=== PATIENT | female | born 1955 | race Caucasian/White ===

== ENCOUNTER → 2017-09-11 | Outpatient (CLI) | payer OTHER ==
--- NOTE | 2017-09-11 16:53 | RAD ---
DATE: 09/11/2017 EXAM: DIGITAL SCREEN BILAT W/CAD HISTORY: Screening Mammogram COMPARISON: Screening mammogram 09/12/2016, 09/14/2015, 09/17/2014 This study was interpreted with the benefit of Computerized Aided Detection (CAD). The breast parenchyma shows scattered fibroglandular densities. Breast parenchyma level B. FINDINGS: Bilateral digital 2-D and 3-D tomosynthesis CC and MLO views. No suspicious mass, calcification or architectural distortion. No significant change from prior examination IMPRESSION: No mammographic evidence of malignancy. Recommend routine screening mammogram in 12 months. BI-RADS CATEGORY: 1 NEGATIVE RECOMMENDED FOLLOW-UP: 12M 12 MONTH FOLLOW-UP PQRS compliance statement: Patient information was entered into a reminder system with a target due date for the next mammogram. Mammography is a sensitive method for finding small breast cancers, but it does not detect them all and is not a substitute for careful clinical examination. A negative mammogram does not negate a clinically suspicious finding and should not result in delay in biopsying a clinically suspicious abnormality. "Our facility is accredited by the [employer] Mammography [employer]."
== END | disposition home or self-care (01) ==
LOC: MAMMO 14:59
PROVIDERS: ATTEND Nurse Practitioner Family
DX: Z12.31 Encounter for screening mammogram for malignant neoplasm of breast (principal)
CPT/HCPCS: 77067

== ENCOUNTER → 2018-09-17 | Outpatient (CLI) | payer OTHER ==
--- NOTE | 2018-09-17 14:35 | RAD ---
DATE: 09/17/2018 EXAM: MAMMO SANDRINE SCREENING BILATERAL HISTORY: Asymptomatic screening mammogram. COMPARISON: 09/11/2017, 09/12/2016, 09/14/2015 This study was interpreted with the benefit of Computerized Aided Detection (CAD). Breast Density: SCATTERED The breast parenchyma shows scattered fibroglandular densities. Breast parenchyma level B. FINDINGS: Bilateral CC and MLO views of the breasts were performed. Right breast: There are no suspicious microcalcifications, masses or areas of architectural distortion. Left breast: There are no suspicious microcalcifications, masses or areas of architectural distortion. Findings are stable from prior mammogram. IMPRESSION: Negative bilateral mammogram. BI-RADS CATEGORY: 1 NEGATIVE RECOMMENDED FOLLOW-UP: 12M 12 MONTH FOLLOW-UP PQRS compliance statement: Patient information was entered into a reminder system with a target due date 09/17/2019 for the next mammogram. Mammography is a sensitive method for finding small breast cancers, but it does not detect them all and is not a substitute for careful clinical examination. A negative mammogram does not negate a clinically suspicious finding and should not result in delay in biopsying a clinically suspicious abnormality. "Our facility is accredited by the [employer] Mammography [employer]."
== END | disposition home or self-care (01) ==
LOC: MAMMO 12:57
PROVIDERS: ATTEND Obstetrics & Gynecology
DX: Z12.31 Encounter for screening mammogram for malignant neoplasm of breast (principal)
CPT/HCPCS: 77063; 77067

== ENCOUNTER → 2018-12-11 | Outpatient (CLI) | payer OTHER ==
--- NOTE | 2018-12-11 08:28 | RAD ---
EXAM: Chest, 2 views. HISTORY: Pain. COMPARISON: 06/10/2014. FINDINGS: 2 views of the chest are obtained. There are slightly decreased lung volumes with associated bilateral lower lobe atelectasis. There is no consolidation, pleural effusion or pneumothorax. The heart is normal in size. There has been right distal clavicular resection. IMPRESSION: Pulmonary hypoventilation with associated bilateral lower lobe atelectasis. Electronically signed by: China Zapata MD (12/11/2018 8:25 AM) [place] [id number]
== END | disposition home or self-care (01) ==
LOC: PMG 07:56
PROVIDERS: ATTEND Physician Assistant Medical
DX: J98.11 Atelectasis (principal)
CPT/HCPCS: 71046

== ENCOUNTER → 2018-12-11 | Outpatient (CLI) | payer OTHER ==
--- NOTE | 2018-12-11 14:19 | RAD ---
EXAM: Abdomen sonogram. HISTORY: Pain. TECHNIQUE: Sonographic imaging of the abdomen was performed. COMPARISON: None. FINDINGS: There is hepatomegaly. No focal hepatic lesion is seen. There is a mobile stone within the gallbladder. There is no evidence of cholecystitis. The pancreas is partially obscured due to bowel gas. The right kidney and inferior vena cava are unremarkable. The common bile duct is normal in caliber for patient age. IMPRESSION: 1. Hepatomegaly. 2. Cholelithiasis. Electronically signed by: China Zapata MD (12/11/2018 2:16 PM) [place] [id number]
== END | disposition home or self-care (01) ==
LOC: US 12:11
PROVIDERS: ATTEND Physician Assistant Medical
DX: K80.20 Calculus of gallbladder without cholecystitis without obstruction (principal); R16.0 Hepatomegaly, not elsewhere classified; R07.9 Chest pain, unspecified
CPT/HCPCS: 76705

== ENCOUNTER → 2019-04-24 | Outpatient (CLI) | payer OTHER ==
--- NOTE | 2019-04-25 10:47 | RAD ---
2 view study of the right hip Clinical indications: Right hip pain. FINDINGS: No acute fracture or dislocation or lytic process is evident. No significant arthritic change is seen. There is mild periosteal reaction of the subtrochanteric area of the proximal right femur and this is located posteriorly. IMPRESSION: Periosteal reaction of the proximal shaft of the right femur in the subtrochanteric area. This could be due to healing stress fracture. Recommend MRI study without contrast for further evaluation. Electronically signed by: Иван Ham MD (04/25/2019 10:45 AM) [id number]
== END | disposition home or self-care (01) ==
LOC: RAD 17:54
PROVIDERS: ATTEND Physician Assistant
DX: M25.551 Pain in right hip (principal)
CPT/HCPCS: 73502

== ENCOUNTER → 2019-06-27 | Outpatient (CLI) | payer OTHER ==
--- NOTE | 2019-06-27 15:55 | RAD ---
INDICATION: Osteoporosis screening. Postmenopausal evaluation COMPARISON: None. TECHNIQUE: Bone densitometry was performed through the lumbar spine and right proximal femur. FINDINGS: Lumbar Spine: L1-4 BMD: 1.12 T-Score: -0.5 Femoral Neck: BMD: 0.96 T-Score: -0.6 IMPRESSION: 1. Lumbar spine falls within the normal range. 2. Femoral neck falls within the normal range. Electronically signed by: Franklin Neal MD (06/27/2019 3:52 PM) [id number]
== END | disposition home or self-care (01) ==
LOC: DXRAD 14:58
PROVIDERS: ATTEND Physician Assistant Medical
DX: N95.1 Menopausal and female climacteric states (principal)
CPT/HCPCS: 77080

== ENCOUNTER → 2019-09-05 | Outpatient (CLI) | payer OTHER ==
--- NOTE | 2019-09-06 11:12 | RAD ---
DATE: 09/06/2019 EXAM: MAMMO SANDRINE SCREENING BILATERAL HISTORY: Routine screening COMPARISON: 09/17/2018, 09/11/2017, 09/12/2016, 09/14/2015 mammographic exams This study was interpreted with the benefit of Computerized Aided Detection (CAD). Breast Density: SCATTERED The breast parenchyma shows scattered fibroglandular densities. Breast parenchyma level B. FINDINGS: No suspicious calcification, mass, or distortion. IMPRESSION: Stable BI-RADS CATEGORY: 1 NEGATIVE RECOMMENDED FOLLOW-UP: 12M 12 MONTH FOLLOW-UP PQRS compliance statement: Patient information was entered into a reminder system with a target due date for the next mammogram. Mammography is a sensitive method for finding small breast cancers, but it does not detect them all and is not a substitute for careful clinical examination. A negative mammogram does not negate a clinically suspicious finding and should not result in delay in biopsying a clinically suspicious abnormality. "Our facility is accredited by the [employer] Mammography Program."
== END | disposition home or self-care (01) ==
LOC: MAMMO 09:04
PROVIDERS: ATTEND Obstetrics & Gynecology
DX: Z12.31 Encounter for screening mammogram for malignant neoplasm of breast (principal)
CPT/HCPCS: 77063; 77067

== ENCOUNTER → 2020-08-26 | Outpatient (CLI) | payer OTHER ==
--- NOTE | 2020-08-26 08:57 | RAD ---
Examination: US DPLX VENOUS EXTREMITY LOWER RT History: LOWER RIGHT LEG SWELLING / Comparison/Correlation: None Findings: Right lower extremity venous duplex ultrasound exam was performed. Compression and augmenta tion are utilized. Right common femoral vein, superficial femoral vein or popliteal vein, proximal profunda femoris vein , posterior tibial veins, and great saphenous vein junction are unremarkable. No DVT evident. Normal compressibility. Normal flow. Edema at the mid posterior calf region is present. Impression: No right lower extremity DVT. Electronically signed by: Evan Ortiz MD (08/26/2020 8:54 AM) [id number]
== END ==
LOC: PMG 07:50
PROVIDERS: ATTEND Physician Assistant Medical
DX: I87.2 Venous insufficiency (chronic) (peripheral) (principal); M79.89 Other specified soft tissue disorders
CPT/HCPCS: 93971

== ENCOUNTER → 2020-09-28 | Outpatient (CLI) | payer OTHER ==
--- NOTE | 2020-09-29 15:25 | RAD ---
DATE: 09/28/2020 3:19 PM EXAM: MAMMO SANDRINE SCREENING BILATERAL HISTORY: Screening COMPARISON: 09/05/2019 Bilateral CC and MLO views of the breasts were performed. Bilateral breast tomosynthesis was performed in CC and MLO projections. This study was interpreted with the benefit of Computerized Aided Detection (CAD). FINDINGS: Breast Density: FATTY The Breast Parenchyma is primarily fatty replaced. Breast parenchyma level density A. No suspicious masses, microcalcifications or architectural distortion is present to suggest malignancy in either breast. The visualized axillae are unremarkable. IMPRESSION: No mammographic evidence of malignancy. BI-RADS CATEGORY: 1 NEGATIVE RECOMMENDED FOLLOW-UP: 12M 12 MONTH FOLLOW-UP Annual screening mammography is recommended, unless clinically indicated sooner based on symptoms or change in physical exam. PQRS compliance statement: Patient information was entered into a reminder system with a target due date for the next mammogram. Mammography is a sensitive method for finding small breast cancers, but it does not detect them all and is not a substitute for careful clinical examination. A negative mammogram does not negate a clinically suspicious finding and should not result in delay in biopsying a clinically suspicious abnormality. "Our facility is accredited by the [employer] Mammography Program."
== END ==
LOC: MAMMO 15:11
PROVIDERS: ATTEND Obstetrics & Gynecology
DX: Z12.31 Encounter for screening mammogram for malignant neoplasm of breast (principal)
CPT/HCPCS: 77063; 77067

== ENCOUNTER 2021-08-11 22:51 | Emergency (ER) | payer OTHER ==
[~2021-08-11] VITALS: Ht 157.5 cm; Wt 108.1 kg
--- NOTE | 2021-08-11 23:52 | RAD ---
EXAM: CT Head without IV contrast CLINICAL HISTORY: fall, forehead abrasion COMPARISON: None. TECHNIQUE: Routine CT of the head without contrast. PQRS compliance statement - One or more of the following individualized dose reduction techniques wer e utilized for this study: 1. Automated exposure control 2. Adjustment of the mA and/or kV according to patient size 3. Use of iterative reconstruction technique FINDINGS: There is no evidence of hemorrhage, mass or extra-axial fluid collection. Alvarez-white differentiation is maintained with no evidence of edema. There is no mass effect or shift of the intracranial structures. The ventricles, basilar cisterns and cortical sulci are normal in size and configuration for the shana ents stated age. The cerebellum and brainstem are unremarkable. The calvarium demonstrates no evidence of fracture or focal lesion. There is normal aeration of the visualized paranasal sinuses and mastoid air cells. The visualized portions of the orbits are normal. Soft tissue swelling overlying the left frontal region. IMPRESSION: No evidence for acute intracranial process. Soft tissue swelling overlying the left frontal region. Electronically signed by: Connor Childress MD (08/11/2021 11:49 PM) EDDI
--- NOTE | 2021-08-11 23:59 | PHYS DOC ---
Past History Past Surgical History: Hysterectomy Adult General Chief Complaint Chief Complaint: MECHANICAL FALL HPI HPI Patient is a 65-year-old female who presents to the emergency department with a chief complaint of fall. States that just before coming to the emergency department she tripped and fell and hit the front of her head on the ground. Denies any loss of consciousness, headache, changes in vision, neck pain, chest pain, shortness of breath, abdominal pain, nausea, vomiting, numbness/weakness/tingling. Denies any trouble sitting, standing or walking. States she came because she is get a big bump on the front of her forehead. States that the pain is about 2 out of 10, dull and achy in nature with no radiation. Denies any anticoagulant use. Review of Systems Review of Systems Review of systems otherwise unremarkable except noted in HPI Allergies Allergies Allergies Coded Allergies Type Severity Reaction Last Updated Verified No Known Drug Allergies 08/11/21 No Physical Exam Physical Exam Constitutional: Well developed, well nourished, no acute distress, non-toxic appearance. [] HENT: Forehead contusion with no signs of skull fracture, bilateral external ears normal, oropharynx moist, no oral exudates, nose normal. [] Eyes: PERRLA, EOMI, conjunctiva normal, no discharge. [] Neck: Normal range of motion, no tenderness, supple, no stridor. [] Cardiovascular:Heart rate regular rhythm, no murmur [] Lungs & Thorax: Bilateral breath sounds clear to auscultation [] Skin: Warm, dry, no erythema, no rash. [] Back: No tenderness, no CVA tenderness. [] Extremities: No tenderness, no cyanosis, no clubbing, ROM intact, no edema. [] Neurologic: Alert and oriented X 3, normal motor function, normal sensory function, able to sit, stand and walk without issue, no focal deficits noted. [] Psychologic: Affect normal, judgement normal, mood normal. [] Current Patient Data Vital Signs Vital Signs Date Time Temp Pulse Resp B/P (MAP) Pulse Ox O2 Delivery O2 Flow Rate FiO2 08/11/21 23:33 101 18 170/101 (124) 98 EKG EKG [] Radiology/Procedures Radiology/Procedures [] Heart Score C/O Chest Pain: No Risk Factors: Risk Factors: DM, Current or recent (<one month) smoker, HTN, HLP, family history of CAD, obesity. Risk Scores: Risk Factors: DM, Current or recent (<one month) smoker, HTN, HLP, family history of CAD, obesity. Course & Med Decision Making Course & Med Decision Making Patient is a 65-year-old female that presents with a bump on her forehead after falling Vital signs initially notable for hypertension tachycardia which resolved in the ED. Physical exam noted above. Given pain medicine. Denied need for nausea medicine. CT of the head with no evidence of acute intracranial process. Discussed all findings with patient. Advised to use ice, Tylenol and ibuprofen as needed. Advised to follow-up with primary care physician to set up a follow-up as needed. Gave return precautions to the ED. Patient grateful, verbalized understanding and agreed with plan of discharge. Dragon Disclaimer Dragon Disclaimer This electronic medical record was generated, in whole or in part, using a voice recognition dictation system. Departure Departure: Impression: Primary Impression: Fall Additional Impression: Head contusion Disposition: HOME / SELF CARE / HOMELESS Condition: GOOD Referrals: LUIS MATTHEW (PCP) Patient Instructions: Contusion, Fall Prevention and Home Safety Additional Instructions: Thank you for coming into the emergency department tonight and allowing us to take care of you. Please read the attached information carefully to go back over some of the things we discussed. Please use ice, Tylenol ibuprofen as needed. Please follow-up with your primary care as needed. Please come back with new or concerning symptoms as discussed. Problem Qualifiers MARE NORIEGA MD Aug 11, 2021 23:59
[2021-08-12 00:48] VITALS: BP 126/72
[2021-08-12] MEDS ORDERED: oxyCODONE/APAP 5/325 1 TAB TABLET PO ONE (01:00)
[2021-08-12] MEDS ORDERED: DIPH,PERTUSS(ACELL),TET VAC/PF 0.5 ML SYRINGE. VAX IM ONE (01:00)
== END 2021-08-12 00:48 | disposition home or self-care (01) ==
LOC: ER 22:51
DX: S00.83XA Contusion of other part of head, initial encounter (principal); W01.0XXA Fall on same level from slipping, tripping and stumbling without subsequent striking against object, initial encounter; Y93.89 Activity, other specified; Y92.89 Other specified places as the place of occurrence of the external cause; Y99.8 Other external cause status
CPT/HCPCS: 70450; 90471; 90715; 99284

== ENCOUNTER → 2021-08-19 | Outpatient (CLI) | payer OTHER ==
[2021-08-12 00:48] VITALS: BP 126/72
--- NOTE | 2021-08-19 15:33 | RAD ---
EXAM: Left knee, 3 views. HISTORY: Pain. Fall. COMPARISON: None. FINDINGS: 3 views of the left knee are obtained. There is medial compartment joint space narrowing an d spurring. There is enthesopathy along the patella. There is no joint effusion. IMPRESSION: Mild medial compartment predominant osteoarthritis of the left knee. Electronically signed by: China Zapata MD (08/19/2021 3:31 PM) [id number]
== END ==
LOC: RAD 14:56
PROVIDERS: ATTEND Physician Assistant
DX: M17.12 Unilateral primary osteoarthritis, left knee (principal); M76.892 Other specified enthesopathies of left lower limb, excluding foot; M25.862 Other specified joint disorders, left knee
CPT/HCPCS: 73562

== ENCOUNTER → 2021-09-13 | Outpatient (CLI) | payer OTHER ==
--- NOTE | 2021-09-14 12:04 | RAD ---
Bilateral digital screening 2-D and 3-D (digital breast tomosynthesis) mammogram: Reason for examination: Routine screening. Comparison: Mammograms from 09/28/2020 and 09/05/2019. Interpretation was made with the benefit of CAD. FINDINGS: Breast density: Category B. There are scattered areas of fibroglandular density. No suspicious breast mass, malignant appearing calcifications, or architectural distortion is seen. IMPRESSION: No evidence of malignancy. Assessment: BI-RADS 1. Negative. Recommendation: Routine screening mammograms. The patient will receive a letter with the results in the mail. Patient information will be entered i nto the mammography reminder system with a target recall date for the next mammogram. A reminder farhat er will be generated. Electronically signed by: Libra Rivas MD (09/14/2021 12:01 PM) [id number]
== END ==
LOC: MAMMO 13:45
PROVIDERS: ATTEND Physician Assistant
DX: Z12.31 Encounter for screening mammogram for malignant neoplasm of breast (principal)
CPT/HCPCS: 77063; 77067